=== PATIENT | female | born 1985 | race Caucasian/White ===

== ENCOUNTER 2025-08-07 07:03 | Outpatient (CLI) | payer MEDICAID, SELFPAY ==
--- NOTE | 2025-08-07 07:15 | MR_ITS ---
[facility] [address] [facility] [address] Phone:?[phone] Fax:?[phone] Referring Physician Information: Kevyn Duran M.D. [address] [facility] [address] Phone:?[phone] Fax:?[phone] Patient:Asher Louis D.O.B:?1985 Sex:?Female Phone:?[phone] [facility] MRN:?[id number] Exam Date:?08/07/2025 EXAM: MRI OF THE RIGHT WRIST WITHOUT CONTRAST CLINICAL: Right wrist pain. Evaluate for ulnar sided tendon injury. COMPARISONS: X-rays 04/10/2025. TECHNICAL: Multiplanar multisequence MRI of the right wrist was obtained. SEDATION: None. CONTRAST: None. FINDINGS: Joints/Osseous structures: No joint effusion, significant osseous changes of arthrosis, subluxation or dislocation. No suspicious marrow signal alteration or fracture line. TFCC: Fibrocartilage disc proper is intact. The remainder of the triangular fibrocartilage complex is intact. Ligaments: Scapholunate: No sprain/tear. Lunotriquetral: No sprain/tear. Tendons: Flexors: Intact without significant tendinosis or tenosynovitis. Extensors: ECU & 6th extensor compartment: There is mild localized thin linear partial tearing of the ECU as it courses along the distal ulna on axial series 4 images 10-11 with mild tendinosis of the ECU distal to the level of the distal ulna. There is edema/mild fluid and low signal synovitis about the ECU. No tendon displacement. 1st - 5th extensor compartments: Intact without significant tendinosis or tenosynovitis. Neurovascular: Median: Unremarkable carpal tunnel without convincing neuritis or intrinsic/extrinsic masses. Ulnar: Unremarkable Guyon's canal without intrinsic/extrinsic masses. IMPRESSION: 1. Mild localized thin linear partial tearing of the ECU as it courses along the distal ulna with mild tendinosis of the ECU distal to the level of the distal ulna. There is edema/mild fluid and low signal synovitis about the coursing ECU. 2. No additional internal derangement identified. JCZ Electronically signed on 08/07/2025 9:18:00 AM by Herve Marroquin D.O.
== END 2025-08-07 07:04 | disposition home or self-care (01) ==
LOC: MRI 07:05
PROVIDERS: Visit Provider Orthopaedic Surgery
DX: M25.531 Pain in right wrist (principal); S63.591A Other specified sprain of right wrist, initial encounter
CPT/HCPCS: 73221; T1013

== ENCOUNTER 2025-10-22 10:38 | Emergency (ER) | payer OTHER, MEDICAID, SELFPAY ==
[2025-10-22 11:27] VITALS: BP 144/85; PULSE 68; RESP 20; TEMP 36.6; O2SAT 99
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
[2025-10-22 13:00] VITALS: BP 135/73; PULSE 62; RESP 16; O2SAT 97
== END 2025-10-22 14:30 | disposition home or self-care (01) ==
PROVIDERS: Emergency Provider Student in an Organized Health Care Education/Training Program; PCP Family Medicine
DX: M25.512 Pain in left shoulder (principal); M25.552 Pain in left hip; S16.1XXA Strain of muscle, fascia and tendon at neck level, initial encounter; V43.52XA Car driver injured in collision with other type car in traffic accident, initial encounter; S00.03XA Contusion of scalp, initial encounter
CPT/HCPCS: 70450; 70486; 71046; 72125; 73030; 73502; 96372; 99284; 99285; T1013; J1885

== ENCOUNTER 2025-11-02 15:44 | Emergency (ER) | payer OTHER, MEDICAID, SELFPAY ==
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
--- OUTSIDE RECORDS SUMMARY | 2025-11-02 15:47 | XMS_ITS | Data Portability ---
Author Organization [facility] Address [address] [place] [address] [facility] [address] Assessment Encounter Date Assessment Date Assessment LastModified by Organization Details LastModified Time 11/28/2023 11/28/2023 - history and sy mptoms c/w osteoarthritis - trial of Turmeric + Naproxen - anti-ccp, RF, consider further referral pending results and symptom management pllqytpio5Ltj yhysepsta70/16/2024 16:46:4908//- Flonase for sore throat - given length of illness with abnormal TM, treat with Fziftngmcbistcyduchv5Dpx eofmoqkyn95/13/2024 16:43:34 Plan of Treatment Reminders Order DateSubmit DateProviderLast Modified ByNancy DetailsCole Modified TimeDetailsAppointmentsNone recorded.SqbBLM48/[facility], [address] [place], [address], 7204/16/2025 12:49:40CMP, serum or dxxpxo31[facility]NA[facility], [address] [place], [address], 02 12:48:14CBC w/ auto diffTHENANot dmdpawbee97/31/2025 14:40:25TSH, serum or limaeu29THENANot rvblkzref43/31/2025 14:41:11CMP, serum or yvzini25/THENANot /31/2025 14:39:28rf (rheumatoid factor), serum ATHENANot afljzhhsz89/29/2024 09:57:07ccp (cyclic citrullinated peptide) iga+igg, serumTHENANot gaqjemmah05/27/2024 14:40:38Referral None recorded.ProceduresNone recorded.SurgeriesNone recorded.ImagingXR, wrist, [facility], [address] [place], [address], Ph [phone] 12:34:15US, abdomen, dteetus46[facility], [address] [place], [address], 504/16/2025 12:43:22MAMMO, screening, digital, kfadmgsdd49ripley8 [facility] Department, [address] [place], [address], 41 21:57:53Medication Ordersnaproxen 500 mg tablet [address], [address], 97 15:36:29Valium 5 mg oqxdmc739035w[address]igwzw[address], [address], 811/25/2024 13:23:34 [address]oxicillin [address], [address], 03/11/2025 12:47:35Flonase Allergy Relief 50 mcg/actuation nasal spray,coiwghgddf50/13/202404/[address], [address], 003/11/2025 12:47:53naproxen 500 mg holqhc44[facility] [address] [place], [address], 11/28/2023 17:06:33 Patient TargetsNo targets recorded. 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 Low fat diet recommended. OK for tylenol. No NSAIDS. We will contact her with her test results. Seek care if worsening symptoms Right wrist pain: most likely a strain/sprain due to the mechanism of injury. However, due to point tenderness upon exam and persistant symptoms, will check an xray to look for an avulsion fracture. Wrist brace daily for the next several weeks recommended. OK for usual work while using the wriste brace. ozpbepz926 Not available 04/03/2025 12:50:18 Reason for Referral None Reported. Results Created Date Observation Date Name Description Value Unit Range Abnormal Flag Note LastModifiedBy Organization Detail LastModifiedTime 12/02/2024 12/02/2024 TSH, serum or plasma TSH 0.815 normalNot AvailableNot Artqqprlt87/31/2025 14:40:510501/BC w/ auto diffwhite blood count9.96normalNot AvailableNot Ahpztnhme34/31/2025 14:39:5505012/02/2024BC w/ auto zcaeZLQ96.8normalNot AvailableNot Bpwzdwefz90/31/2025 14:39:550505CBC w/ auto ecqccnm646afxeawXfo AvailableNot Voyuhycvv42/31/2025 14:39:5501/659219/MP, serum or plasmacreatinine0.7normalNot AvailableNot Qfkthxgjd23/31/2025 14:39:04012/02/2024 12/02/2024MP, serum or yyvelmTBE00ihtnxaZji AvailableNot Nrtpxljyt97/31/2025 14:39:04004/10//BCwhite blood count8.08normalNot AvailableQuest [facility] [address] [place], [address], Ph [phone] 12:49:[address] [facility] [address] [place] [address], [address], [address] 12:49:09 [address]Chematocrit40[address] [facility] [address] [place] [address], [address], [address] 12:49:09 BCplatelet ticte412seswoiWwb AvailableQuest [facility] [address] [place] [address], [address], 17 12:49:09 MP, serum or plasmacreatinine0.6normalNot AvailableQuest [facility]. [facility] [address] [place] [address], [address], 99 12:47:49 MP, serum or hdmjuvOTK20ojukDnc AvailableQuest St. [facility] [address] [place] [address], [address], [address] 12:47:49 MAMMO, screening, digital, bilateralNo observation recorded. [address] Radiology Department [address] [place], [address], Ph [phone] 17:15:48 XR, wrist, 3 or more viewNo observation recorded.[facility]iology Department [address] [place], [address], Ph [phone] 14:19:21 MAMMO, diagnostic, unilateralNo observation recorded.[facility] Radiology Department [address] [place], [address], Ph [phone] 15:27:34 US, abdomen, limitedNo observation recorded.[facility] [address] [place], [address], Ph [phone] 14:19:21 US, breastNo observation recorded.[facility] Radiology Department [address] [place], [address], Ph [phone] 15:27:34 Result Notes None recorded. Medical Equipment None Reported. Allergies No known drug allergies Medications Name Sig Start Date Stop Date Status Note LastModified by Organization Details LastModified Time naproxen 250 mg tablet TAKE ONE TABLET BY MOUTH TWICE A DAY 03/11/2025ompletedNot AvailableNot AvailableNot Availablemetronidazole 500 mg tabletTAKE 1 TABLET (500 MG) BY MOUTH 2 TIMES DAILY FOR 7 DAYS.02/21/2023 completedNot AvailableNot AvailableNot Availableomeprazole 40 mg capsule,delayed releaseTAKE ONE CAPSULE BY MOUTH EVERY DAY03/11/2025ompletedNot AvailableNot AvailableNot Availableamoxicillin 875 mg tabletTAKE ONE TABLET BY MOUTH EVERY 12 HOURS FOR 7 DAYS03/11/2025ompletedNot AvailableNot AvailableNot Available omeprazole 20 mg capsule,delayed releaseTAKE 1 CAPSULE BY MOUTH EVERY DAY NEEDED FOR HEART BURN.activeNot AvailableNot AvailableNot Availablefluticasone propionate 50 mcg/actuation nasal spray,suspensionINSTILL 1 SPRAY INTO AFFECTED NOSTRIL/S EVERY DAY5completedNot AvailableNot AvailableNot Available loratadine 10 mg tabletTAKE ONE TABLET BY MOUTH EVERY DAY QFYEQQ0002/21/2023 completedNot AvailableNot AvailableNot Availablenaproxen 500 mg tabletTAKE ONE TABLET BY MOUTH TWICE A DAY FOR 10 DAYS FOR WRIST SPRAIN.activeNot AvailableNot AvailableNot Availablediazepam 5 mg tabletTAKE ONE TABLET BY MOUTH TWICE A DAY NEEDED FOR VERTIGOactiveNot AvailableNot AvailableNot Availablediclofenac 1 % topical gelAPPLY 2 GRAMS TO THE AFFECTED AREA(S) BY TOPICAL ROUTE 4 TIMES PER DAYactiveNot AvailableNot AvailableNot Available Vitals Date Recorded Body height Body mass index (BMI) Body weight Heart rate Oxygen saturation Systolic And Diastolic Provider Name and Address Organization Details Last Updated DateTime 5 157.48 cm 31.6 kg/m2 10541.4 8 g 68 /min 99 % 110/62 mm[Hg] Selena Gustafson MD [address] [place], [address], [facility] [employer] [facility] 5 12:00:42 Date Recorded Body height Body mass index (BMI) Body weight Oxygen saturation Body temperature Heart rate Respiratory rate Systolic And Diastolic Provider Name and Address Organization Details Last Updated DateTime 4 157.48 cm 31.9 kg/m2 09564.5 1 g 98 % 97.2 [degF] 70 /min 22 /min 116/69 mm[Hg] Naomi Meredith [facility] [employer] [facility] 4 14:16:45 Date Recorded Body height Body mass index (BMI) Body weight Body temperature Oxygen saturation Heart rate Systolic And Diastolic Provider Name and Address Organization Details Last Updated DateTime 5 157.48 cm 32 kg/m2 78277.6 6 g 97.3 [degF] 93.97 % 94 /min 150/71 mm[Hg] Rita Mathis [facility] [employer] 5 12:32:09 Date Recorded Body height Body mass index (BMI) Body weight Body temperature Heart rate Oxygen saturation Systolic And Diastolic Provider Name and Address Organization Details Last Updated DateTime 5 157.48 cm 32 kg/m2 33081.9 5 g 96.1 [degF] 59 /min 92 % 121/67 mm[Hg] Gwendolyn Charanjit [place] - [employer] 12:16:34 Date Recorded Body height Body mass index (BMI) Body weight Provider Name and Address Organization Details Last Updated DateTime 06/25/2024 157.48 cm 31.6 kg/m2 54531.48 g Selena Gustafson MD [facility] [place], [address], [place] - [employer] [facility] 06/25/2024 16:40:31 Social History Question Answer Notes LastModified by Organization D etails LastModified Time Do You Feel Safe At Home? 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 Family History Nothing Reported Notes:mother has high choles terol, father healthy as are two sisters Medical History No medical history recorded. Gynecological HistoryNo gynecological history recorded. Obstetrics History GPAL:G 0 P 0 0 0 0 Immunizations Vaccine Type Date Status Note Provider Nam e and Address Organization Details Recorded Time Influenza, split virus, quadrivalent, PF 08/21/2018 completed Not NizrghgcrZiswsyCttekc31/22/2025 12:13:99Vsmt9511/19/2018completedNot Available UuuidnHlgaft89/22/2025 12:13:90KUA3612/31/2018completedNot [facility] 04/03/2025 12:13:45COVID-19, mRNA, LNP-S, PF, 100 mcg/0.5mL dose or 50 mcg/0.25mL dose04/23/2021ompletedNot VzlvnkvsjNuyyabSkpfyz70/22/2025 12:13:45 COVID-19, mRNA, LNP-S, PF, 100 mcg/0.5mL dose or 50 mcg/0.25mL dose05/20/2021 completedNot QbtmvorwtMgwippBfzbkj94/22/2025 12:13:45 Past Encounters Encounter ID Performer Location Encounter Start Date Encounter Closed Date Diagnosis/Indication Diagnosis SNOMED-CT Code Diagnosis ICD10 Code Diagnosis IMO Codes Diagnosis Note [id number] Jaqui Mcqueen NP [facility] [address] [place] [address] 06/17/2020 16:31:53 06/17/2020 16:32:52 [id number] [facility] [address] [place] [address] 12/14/2021 18:32:04012/14/2021 19:59:97Mqygjyeghph398189984Z66.13 prob not gb, could be hyperacidity, r/o H [id number] [facility] [address] [place] [address] 02/22/2022 18:35:2804 19:29:07Serous otitis rfixy09428948M56.91 needs [id number] R[facility]ARD [facility] [address] [place] [address] 02/21/2023 17:43:35002/21/2023 18:00:49Pain in iepwl696798064H14.642 most likel over work rishabh to susceptible joint at base of xtsxx10073VcpyaaWADE [facility] [address] [place] [address] 03/28/2023 17:48:13003/28/2023 18:13:20Pain of left yupp687366170194063F17.642 imaging normal, stiffness but no sign of rheumatoid rkxqzrcwo16791Sd. Vinayak Escudero [facility] [address] [place] [address] 10/09/2023 16:07:0710/09/2023 17:20:24Pain of bilateral qsgyy93395455232608889 M79.641 M79.642 Jjdvgzufhlm314700498N41.8 Paresthesia of bilateral fifzv247564531L80.2 [id number] KhanMER[facility] [address] [place] [address] 11/28/2023 14:09: 15:03:29Pain of bilateral mwvyb37403351192565854 M79.641 [id number] KhanCRAWLEY [facility] [address] [place] [address] 06/25/2024 15:53:0706/25/2024 16:55:51Sore ohfloc097373433A32.9 Pain of jhc354517916E42.09 [id number] KhanMER[facility] [address] [place] [address] 11/25/2024 11:21:35011/25/2024 12:07:26Benign paroxysmal positional vertigo 613962869B32.10 - given handout of home Tray maneuvers- trial of Valium (reviewed side effect profile, NOT to taken when driving)- labs- discussed red flag symptoms and return precautionsScreening for malignant neoplasm of zckgjk388481573Z83.31 Irregular intermenstrual cftfcthk43665358Q31.1 - on Depo (receives at [facility])- check TSH, CBC- monitor symptoms, consider transition to other form of control if tgzbgrvuch93741VMM MD [facility] [address] [place] [address] 03/11/2025 12:05: 13:16:44Injury of right kizdl98666747599795866 S63.501A S66.911A [id number] trial Nsaid for 10 days with home exercisescall if not better to consider next steps in evaluationMammography cpxtknsr135410788K88.8 [id number] reviewed resultspatient confirms that she has follow up studies scheduled(mammo and US)[id number] ENRIQUEZ [facility] [address] [place] [address] 04/03/2025 12:13: 12:44:02Right upper quadrant bbpw973644691Z34.11 512678 Pain of right vluwx452075197898855U16.531 016547 Health Concerns Section Related Observation LastModified by Organization Detai ls LastModified Time None Recorded Concern Status LastModified by Organization Details LastModified Time None Recorded Advance Directives Directive None Recorded Payers Insurance Date Sequence Insurance Name Policy Number Policy Cameron Covered Member ID Cameron Member ID Guarantor Name 12/14/2021 1 *SELF PAY* Rebekah Cooley12/14/2021LIDING FEE SCHEDULE - ZULAYOUNTMaamy Yasir Notes Date Note Type Note Provider Name and Address Zana sweeney Details Recorded Time 11/28/2023 text/html ROS as noted in the HPI Rebekah is in for followup of bilateral hand pain and edema.Symptoms worse in the mornings and evenings, 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 + stiffness as well.No skin findings. No edema in lower extremities, no GI or concerns.Saw Orthopedic Surgery in September, he checked TSH/T4, both normal. No family history of autoimmune disease that she's aware of.Selena Gustafson MD [address] [place], [address], [facility] [employer] Ntkaxofqbbfsg42/16/2024 16:46:5808text/htmlROS as noted in the HPI Rebekah is in for a sore throat and L ear pain.She's had the sore throat on and off for 2-3 months, no associated cough or fever. Pain seems worsein the morning and she often has phlegm in the back of her throat.L ear pain worse in the last few days.Hasn't tried much for symptoms.Selena Gustafson MD [address] [place], [address], [facility] [employer] Cpvaqgcgyeloo10/13/2024 16:43:50011/25/2024text/html Rebekah is in for two concerns: 1. Dizziness/spinning, noted for the past two weeks. No inciting incident. Symptoms worse when laying down or looking up. Feels like she could fall because of being off balance, hasn't yet. No syncope. When dizziness abates, she has nausea (but no vomiting). symptoms have improved but still persist. Recently changed her eyeglass prescription, vision stable. No hearing concerns. No headache. 2. Heavy bleeding for two weeks past her Depo injection (gets this at the [facility]). Typicallyonly has 1-2 days of spotting with this type of control. Selena Gustafson MD [address] [facility] [place], [address], [facility] [employer] Bfjqxmivrcxvn24/13/2025 12:01:32003/11/2025text/html Rebekah is 39 year L handed female in for concerns about wrist painR wrist pain - started 3+weeks ago when she was walking her dog Pain in located outer wrist(ulnar) , present at rest but increases with activity Has increased pain now with certain movements more than she did initiallyPain is getting worseNo swelling or redness initially or nowFeels like pulsing pain, sometimes feels cold. Pain is bearable. 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 Patient reports that she is scheduled in March for further studies. 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 She has a one week history of pain in her upper abdominal with radiation to her RUQ with bloating. She took some tylenol which improved the symptomswith in a few days. The symptoms have slowly improved. She denies vomiting or nauseated. She felt slightly dizzy when lying down. She had diarrhea when she had the episode. She is not . She was no hungry during the episode. She has had several episodes in the last few years. She has a strong family history of GB disease in her mother and sisters. She had a reassuring CMP 11/2024 Regarding her right wrist. Her wrist was twisted in the 2-3 months when her dog pulled her wrist inthe outward mechanism, ulnar rotation. Her wrist will hurt much more at rest. She was seen in clinic in the end of February and took for Naproxen for a few weeks. The medication was not helpful. She still has pain when she moves her wrist a certain way which is quite sharp. She works for [employer] and has some pain with activity at work.JULIA ENRIQUEZ MD [address] [facility] [place], [address], [facility]04/03/2025 12:50:46 OBGyn Episode No OBEpisode recorded.
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
[2025-11-02 16:00] VITALS: BP 136/78; PULSE 69; RESP 18; TEMP 36.7; O2SAT 97; BMI 29.3
--- NOTE | 2025-11-02 16:22 | CT_ITS ---
Patient: PO MALONEY Facility:?[facility] R[facility] Patient ID:?[id number] Site Patient ID:?[id number]. Site :?[id number] Study:?CT-Head Angio w/iv-11/02/2025 4:48:32 PM Ordering Physician:Gabrielle Thomas Final Report: DATE: 11/02/2025 CLINICAL HISTORY: Patient with headache, left sided tinnitus, recent trauma. TECHNIQUE: Standard helical CT image acquisition through the head and neck was performed after intravenous contrast bolus enhancement. 2D and 3D MIP images for post- processing were performed and interpreted on an independent workstation and 3D images were permanently archived. COMPARISON: CT same day. FINDINGS: There is a 3mm right posterior communicating artery aneurysm. There are prominent arachnoid granulations in the left transverse sinus causing moderate to severe stenosis. The origins of the great vessels from the aortic arch are patent. The origin of the right vertebral artery is patent. The origin of the left vertebral artery is patent. The common carotid arteries are patent There is no stenosis at the origin of the right internal carotid artery. There is no stenosis at the origin of the left internal carotid artery. The rest of the cervical segments of the internal carotid arteries are patent up to their intracranial segments. The intracranial segments of the internal carotid arteries are patent. The right vertebral artery is dominant. The cervical segments of the vertebral arteries are patent. The intracranial segments of the vertebral arteries are patent. The middle cerebral arteries are normal without aneurysm or proximal occlusion identified. The anterior cerebral arteries are normal without aneurysm or proximal occlusion identified. The anterior communicating artery is well visualized and appears normal. The basilar artery is normal without aneurysm or occlusion. The posterior cerebral arteries are normal without aneurysm or proximal occlusion. The visualized lung apices are unremarkable The thyroid gland is unremarkable. The soft tissues of the neck are unremarkable. There are degenerative changes in the cervical spine. IMPRESSION: 1. No evidence of vascular injury. 2. 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 Telehealth consultation with [facility]`s Neurointerventional team for management of this aneurysm can be arranged by calling [phone]. 3. 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 If the patient experiences persistent left-sided pulsatile tinnitus, then a cerebral angiogram and venogram should be performed to determine whether this narrowing is the cause of the patient`s tinnitus. Arrangements for this to be performed by [facility]`s Neurointerventional team can be made by calling . Findings and recommendations were discussed with Dr. Chavez at 5:30 PM. Cecy Reardon M.D. Neurointerventional Radiologist [facility] [place] Pager: Office/Appointments: [facility] Center: Please note that all CT scans at this facility use dose modulation, iterative reconstruction, and/or weight-based dosing when appropriate to reduce radiation dose to as low as reasonably achievable. Dictated by Cecy Reardon MD @ 11/02/2025 5:40:30 PM Signed by:?Cecy Reardon MD @11/02/2025 5:40:30 PM (Electronic Signature)
--- NOTE | 2025-11-02 16:22 | CT_ITS ---
Patient: PO MALONEY Facility:?[facility] R[facility] Patient ID:?[id number] Site Patient ID:?[id number]. Site :?[id number] Study:?CT-Neck Angio W/IV-11/02/2025 4:48:13 PM Ordering Physician:Gabrielle Thomas Final Report: DATE: 11/02/2025 CLINICAL HISTORY: Patient with headache, left sided tinnitus, recent trauma. TECHNIQUE: Standard helical CT image acquisition through the head and neck was performed after intravenous contrast bolus enhancement. 2D and 3D MIP images for post- processing were performed and interpreted on an independent workstation and 3D images were permanently archived. COMPARISON: CT same day. FINDINGS: There is a 3mm right posterior communicating artery aneurysm. There are prominent arachnoid granulations in the left transverse sinus causing moderate to severe stenosis. The origins of the great vessels from the aortic arch are patent. The origin of the right vertebral artery is patent. The origin of the left vertebral artery is patent. The common carotid arteries are patent There is no stenosis at the origin of the right internal carotid artery. There is no stenosis at the origin of the left internal carotid artery. The rest of the cervical segments of the internal carotid arteries are patent up to their intracranial segments. The intracranial segments of the internal carotid arteries are patent. The right vertebral artery is dominant. The cervical segments of the vertebral arteries are patent. The intracranial segments of the vertebral arteries are patent. The middle cerebral arteries are normal without aneurysm or proximal occlusion identified. The anterior cerebral arteries are normal without aneurysm or proximal occlusion identified. The anterior communicating artery is well visualized and appears normal. The basilar artery is normal without aneurysm or occlusion. The posterior cerebral arteries are normal without aneurysm or proximal occlusion. The visualized lung apices are unremarkable The thyroid gland is unremarkable. The soft tissues of the neck are unremarkable. There are degenerative changes in the cervical spine. IMPRESSION: 1. No evidence of vascular injury. 2. 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 Telehealth consultation with [facility]`s Neurointerventional team for management of this aneurysm can be arranged by calling [phone]. 3. 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 If the patient experiences persistent left-sided pulsatile tinnitus, then a cerebral angiogram and venogram should be performed to determine whether this narrowing is the cause of the patient`s tinnitus. Arrangements for this to be performed by [facility]`s Neurointerventional team can be made by calling . Findings and recommendations were discussed with Dr. Chavez at 5:30 PM. Cecy Reardon M.D. Neurointerventional Radiologist [facility] [place] Pager: Office/Appointments: [facility] Center: Please note that all CT scans at this facility use dose modulation, iterative reconstruction, and/or weight-based dosing when appropriate to reduce radiation dose to as low as reasonably achievable. Dictated by Cecy Reardon MD @ 11/02/2025 5:39:53 PM Signed by:?Cecy Reardon MD @11/02/2025 5:39:53 PM (Electronic Signature)
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
[2025-11-02] MEDS: ONDANSETRON 2 MG/ML inj 4 MG IVP (16:54)
[2025-11-02] MEDS: diazePAM 5 MG/ML inj 2.5 MG IV (16:57)
[2025-11-02 17:17] LABS: Hematocrit* 29.6 % (33.0-51.0); Hemoglobin* 10.0 gm/dL (12.0-16.0); Immature Granulocytes Abs Auto 0.02 K/uL (0.00-0.30); Immature Granulocytes Pct Auto 0.3 %; Lymphocytes Absolute Auto 3.33 K/uL (0.90-2.90); Mean Corpuscular HGB Conc 34 gm/dL (32-36); Mean Corpuscular Hemoglobin 31 pg (26-34); Mean Corpuscular Volume 91 fL (80-100); RDW Coefficient of Variation % 13.0 % (11.5-15.5); Red Blood Count* 3.26 m/uL (4.00-5.20); White Blood Count* 7.93 K/uL (4.50-11.00)
[2025-11-02 17:18] LABS: Slide Review Reflex No
[2025-11-02 17:35] LABS: Chloride* 103 mmol/L (96-114); Potassium* 3.5 mmol/L (3.6-5.1); Sodium* 133 mmol/L (135-149)
[2025-11-02 17:38] LABS: Anion Gap 12 mEq/L (7-15); Blood Urea Nitrogen* 19 mg/dL (5-24); Carbon Dioxide* 18 mmol/L (20-32); Creatinine* 0.8 mg/dL (0.5-1.5); Est. Creatinine Clearance* 73.19; Estimated Glomerular Filt Rate 95 ml/min
[2025-11-02 17:39] LABS: Calcium* 8.4 mg/dL (8.4-10.6); Glucose* 84 mg/dL (60-115)
[2025-11-02 17:43] LABS: HCG Qualitative Serum* Negative (Negative)
== END 2025-11-02 18:40 | disposition home or self-care (01) ==
PROVIDERS: Emergency Provider Emergency Medicine; PCP Family Medicine
DX: I67.1 Cerebral aneurysm, nonruptured (principal); R51.9 Headache, unspecified; M54.2 Cervicalgia; M25.512 Pain in left shoulder
CPT/HCPCS: 36415; 70450; 70496; 70498; 80048; 84703; 85025; 96374; 96375; 99284; 99285; J1171; J2405; J3360; Q9967